=== PATIENT | male | born 1985 ===

== ENCOUNTER 2019-08-17 08:27 | Emergency (ER) | payer BC ==
--- NOTE | 2019-08-17 08:56 | UC ---
Throat Pain/Nasal Taqueria HPI - HPI Summary HPI Summary: started with Sore throat 4 days ago, low grade fever. today very fatigued and L ear also painful - History of Current Complaint Chief Complaint: UCGeneralIllness Stated Complaint: THROAT PAIN Time Seen by Provider: 08/17/19 08:41 Hx Obtained From: Patient Onset/Duration: Gradual Onset Severity: Mild Pain Intensity: 2 Cough: None Associated Signs & Symptoms: Positive: Fever - Allergies/Home Medications Allergies/Adverse Reactions: Allergies Allergy/AdvReac Type Severity Reaction Status Date / Time amoxicillin Allergy Hives Verified 08/17/19 08:33 Sulfa (Sulfonamide Allergy Eyes Verified 08/17/19 08:33 Antibiotics) Itchy/Swollen/Red/Watery Home Medications: Home Medications Aspirin TAB* [Aspirin 325 MG TAB*] 750 mg PO ONCE 08/17/19 [History Confirmed ] PMH/Surg Hx/FS Hx/Imm Hx Previously Healthy: Yes - Surgical History Surgical History: Yes Surgery Procedure, Year, and Place: appendectomy 2009. L wrist 2005. R ankle 2015. inguinal hernia repair 1999 - Family History Known Family History: Positive: Non-Contributory - Social History Occupation: Employed Full-time Lives: With Family Alcohol Use: Occasionally Substance Use Type: None Smoking Status (MU): Never Smoked Tobacco Review of Systems All Other Systems Reviewed And Are Negative: Yes Constitutional: Positive: Fever Skin: Positive: Negative. Negative: Rash ENT: Positive: Sore Throat, Ear Ache Respiratory: Positive: Negative Cardiovascular: Positive: Negative Neurological: Positive: Negative. Negative: Headache Psychological: Positive: Negative Is Patient Immunocompromised?: No Physical Exam Triage Information Reviewed: Yes Appearance: Well-Appearing, No Pain Distress, Well-Nourished Vital Signs: Initial Vital Signs Temp 96.9 F 08/17/19 08:35 Pulse 98 08/17/19 08:35 Resp 18 08/17/19 08:35 BP 119/87 08/17/19 08:35 Pulse Ox 96 08/17/19 08:35 Vital Signs Reviewed: Yes Eye Exam: Normal Eyes: Positive: Conjunctiva Clear ENT: Positive: Pharyngeal erythema, TM red - Left, Tonsillar swelling, Tonsillar exudate Neck exam: Normal Neck: Positive: Supple, Nontender, No Lymphadenopathy Respiratory Exam: Normal Respiratory: Positive: Lungs clear Cardiovascular Exam: Normal Neurological Exam: Normal Neurological: Positive: Alert Psychological Exam: Normal Skin Exam: Normal Throat Pain/Nasal Course/Dx - Differential Dx/Diagnosis Differential Diagnosis/HQI/PQRI: Influenza, Otitis Media, Tonsillitis, URI Provider Diagnosis: Otitis media, Pharyngitis Discharge ED - Sign-Out/Discharge Documenting (check all that apply): Patient Departure All imaging exams completed and their final reports reviewed: No Studies - Discharge Plan Condition: Good Disposition: HOME Prescriptions: Azithromycin TAB* [Zithromax TAB (Z-BARBARA) 250 mg #6 tabs] 2 tab PO .TODAY, THEN 1 DAILY #1 barbara Patient Education Materials: Ear Infection (ED), Pharyngitis (ED) Referrals: No Primary Care Phys,NOPCP [Primary Care Provider] - Additional Instructions: drink plenty of fluids and rest start zithromax (antibiotic) and take as prescribed use Tylenol or ibuprofen for pain and fever follow-up with primary care provider in home town if no better 2 days - Billing Disposition and Condition Condition: GOOD Disposition: Home
== END 2019-08-17 09:10 | disposition home or self-care (01) ==
LOC: UCEAST 08:27
DX: H66.90 Otitis media, unspecified, unspecified ear (principal); J02.9 Acute pharyngitis, unspecified; Z88.0 Allergy status to penicillin; Z88.2 Allergy status to sulfonamides
CPT/HCPCS: 87651; 99202; G0463